=== PATIENT | male | born 1930 | race Caucasian/White ===

== ENCOUNTER 2018-07-24 13:57 | Emergency (ER) | payer BC ==
[2018-07-24 15:22] LABS: ADD UMIC NO; UR ASCORBIC ACID 40 mg/dL (NEGATIVE); UR BILIRUBIN (Dip) NEGATIVE (NEGATIVE); UR BLOOD (Dip) NEGATIVE (NEGATIVE); UR CLARITY CLEAR (CLEAR); UR COLOR YELLOW (YELLOW); UR GLUCOSE (Dip) 1+ mg/dL (NEGATIVE); UR KETONES (Dip) NEGATIVE (NEGATIVE); UR LEUKOCYTE ESTERASE (Dip) NEGATIVE Leu/ul (NEGATIVE); UR NITRITE (Dip) NEGATIVE (NEGATIVE); UR SPECIFIC GRAVITY (Dip) 1.014 (1.003-1.030); UR TOTAL PROTEIN (Dip) NEGATIVE (NEGATIVE); UR UROBILINOGEN (Dip) NEGATIVE (NEGATIVE)
== END 2018-07-24 16:51 | disposition home or self-care (01) ==
LOC: E/R 13:57
DX: R33.9 Retention of urine, unspecified (principal); R30.0 Dysuria; E11.9 Type 2 diabetes mellitus without complications; Z79.84 Long term (current) use of oral hypoglycemic drugs
CPT/HCPCS: 51702; 81003; 99283-25

== ENCOUNTER 2018-12-08 01:30 | Observation (INO) | payer BC ==
[2018-12-08 03:15] LABS: ADD MAN DIFF? NO
[2018-12-08 03:18] LABS: WHITE BLOOD COUNT 6.5 10^3/ul (4.8-10.8)
[2018-12-08 03:18] LABS: BASOPHILS % 0.5 % (0.0-2.0); EOSINOPHILS # 0.2 10^3/ul (0.0-0.5); EOSINOPHILS % 2.8 % (0.0-7.0); HEMATOCRIT 36.7 % (42.0-52.0); HEMOGLOBIN 12.4 g/dl (14.0-18.0); LYMPHOCYTES # 1.1 10^3/ul (0.8-2.9); LYMPHOCYTES % 17.3 % (15.0-51.0); MEAN CORPUSCULAR HEMOGLOBIN 30.3 pg (29.0-33.0); MEAN CORPUSCULAR HGB CONC 33.8 g/dl (32.0-37.0); MEAN CORPUSCULAR VOLUME 89.7 fl (82.0-101.0); MONOCYTE # 0.7 10^3/ul (0.3-0.9); NEUTROPHIL # 4.5 10^3/ul (1.6-7.5); NEUTROPHILS % 69.1 % (39.0-77.0); PLATELET COUNT 169 10^3/UL (140-415); RED BLOOD COUNT 4.09 10^6/ul (4.70-6.10); RED CELL DISTRIBUTION WIDTH 12.9 % (11.5-14.5)
[2018-12-08 03:25] LABS: ADD UMIC YES; UR ASCORBIC ACID NEGATIVE (NEGATIVE); UR BILIRUBIN (Dip) NEGATIVE (NEGATIVE); UR BLOOD (Dip) 1+ mg/dL (NEGATIVE); UR CLARITY CLEAR (CLEAR); UR COLOR STRAW (YELLOW); UR GLUCOSE (Dip) NEGATIVE (NEGATIVE); UR KETONES (Dip) NEGATIVE (NEGATIVE); UR LEUKOCYTE ESTERASE (Dip) NEGATIVE Leu/ul (NEGATIVE); UR NITRITE (Dip) NEGATIVE (NEGATIVE); UR RBC 0 /HPF (0-5); UR SPECIFIC GRAVITY (Dip) 1.005 (1.003-1.030); UR TOTAL PROTEIN (Dip) NEGATIVE (NEGATIVE); UR UROBILINOGEN (Dip) NEGATIVE (NEGATIVE); UR WBC 0 /HPF (0-5)
[2018-12-08 03:38] LABS: INR 1.13; PROTIME 14.6 Sec (11.9-14.9); PT RATIO 1.1
[2018-12-08 03:39] LABS: PARTIAL THROMBOPLASTIN TIME 31.7 Sec (23.0-35.0)
[2018-12-08 03:48] LABS: ALANINE AMINOTRANSFERASE 21 IU/L (13-69); ALBUMIN 3.8 g/dl (3.3-4.9); ALBUMIN/GLOBULIN RATIO 1.15; ALKALINE PHOSPHATASE 59 IU/L (42-121); ANION GAP 8 (5-13); ASPARTATE AMINO TRANSFERASE 31 IU/L (15-46); BILIRUBIN,INDIRECT 0.3 mg/dl (0-1.1); BILIRUBIN,TOTAL 0.3 mg/dl (0.2-1.3); BLOOD UREA NITROGEN 26 mg/dl (7-20); CALCIUM 9.2 mg/dl (8.4-10.2); CARBON DIOXIDE 28 mmol/L (21-31); CHLORIDE 103 mmol/L (97-110); CREATININE 1.02 mg/dl (0.61-1.24); GLUCOSE 129 mg/dl (70-220); POTASSIUM 4.2 mmol/L (3.5-5.1); SODIUM 139 mmol/L (135-144); TOTAL PROTEIN 7.1 g/dl (6.1-8.1)
[2018-12-08 03:59] LABS: TROPONIN-I 0.074 ng/ml (0.000-0.120)
[2018-12-08] MEDS: SOD CHLORIDE 0.9% 100 ML (04:53)
[2018-12-08] MEDS: IOHEXOL 100 ML (04:53)
[2018-12-08] MEDS: PIPER-TAZO 3.375 GM IV (PMX) 100 ML IVPB (05:35)
[2018-12-08] MEDS: SOD CHLORIDE 0.9% 2,390 ML IV (05:36)
[2018-12-08] MEDS: VANCOMYCIN 1 GM (PMX) 250 ML IVPB (05:44)
[2018-12-08 07:45] LABS: LACTIC ACID 0.9 mmol/L (0.5-2.0)
[2018-12-08] MEDS ORDERED: NITROGLYCERIN (SL) 0.4 MG TAB SL (09:00)
[2018-12-08] MEDS ORDERED: ENOXAPARIN 40 MG/0.4 ML SYG SC (09:00)
[2018-12-08] MEDS ORDERED: ALBUTEROL/IPRATROPIUM (NEB) 3 ML AMP HHN (09:00)
[2018-12-08] MEDS ORDERED: ONDANSETRON 4 MG INJ IV (09:00)
[2018-12-08] MEDS ORDERED: BISACODYL 10 MG SUPP PR (09:00)
[2018-12-08] MEDS ORDERED: NACL 0.9% 3 ML SYG IV (09:00)
[2018-12-08] MEDS ORDERED: MAGNESIUM HYDROXIDE 30ML CUP PO (09:00)
[2018-12-08] MEDS ORDERED: DOCUSATE SODIUM 100 MG CAP PO (09:00)
[2018-12-08] MEDS ORDERED: ACETAMINOPHEN 325 MG TAB PO (09:00)
[2018-12-08] MEDS: FUROSEMIDE 40 MG INJ IV (09:58)
[2018-12-08] MEDS: FAMOTIDINE 20 MG TAB PO ×2 (09:58→21:09)
[2018-12-08] MEDS: NICOTINE (21 MG/24 HR) PATCH TRANSDERM (09:59)
[2018-12-08] MEDS: FINASTERIDE 5 MG TAB PO (10:41)
[2018-12-08] MEDS: FLUTICASONE/VILANTEROL 100-25 INH (10:41)
[2018-12-08] MEDS: INSULIN ASPART [NOVOLOG] 3 ML PEN SC ×3 (12:17→21:00)
[2018-12-08 13:34] LABS: CREATINE KINASE 36 IU/L (23-200)
[2018-12-08 13:48] LABS: B-TYPE NATRIURETIC PEPTIDE 13300 PG/ML (0-450); CK INDEX 2.6; CK-MB 0.93 ng/ml (0.0-2.4); TROPONIN-I 0.056 ng/ml (0.000-0.120)
[2018-12-08] MEDS: LEVOFLOXACIN 500 MG TAB PO (14:08)
[2018-12-08] MEDS: TIOTROPIUM 18 MCG CAPSULE INHA DEV INH (14:09)
[2018-12-08] MEDS ORDERED: DEXTROSE 50% 50 ML SYRINGE IV ×2 (15:00)
[2018-12-08] MEDS ORDERED: GLUCOSE GEL 15 GRAM TUBE BUCCAL (15:00)
[2018-12-08] MEDS ORDERED: GLUCAGON 1 MG INJ IM (15:00)
[2018-12-08] MEDS ORDERED: GLUCOSE GEL 15 GRAM TUBE PO ×2 (15:00)
[2018-12-08] MEDS: glipiZIDE 10 MG TAB PO (17:12)
[2018-12-08] MEDS: TERAZOSIN 2 MG CAP PO (21:09)
[2018-12-08] MEDS: IBUPROFEN 600 MG TAB PO (21:10)
[2018-12-08] MEDS: ACCU-CHEK XX (21:17)
[2018-12-09] MEDS: IBUPROFEN 600 MG TAB PO (03:40)
[2018-12-09 06:03] LABS: ADD MAN DIFF? NO
[2018-12-09 06:10] LABS: BASOPHILS % 0.6 % (0.0-2.0); EOSINOPHILS # 0.2 10^3/ul (0.0-0.5); EOSINOPHILS % 2.6 % (0.0-7.0); HEMATOCRIT 37.3 % (42.0-52.0); HEMOGLOBIN 12.6 g/dl (14.0-18.0); LYMPHOCYTES # 1.2 10^3/ul (0.8-2.9); LYMPHOCYTES % 18.9 % (15.0-51.0); MEAN CORPUSCULAR HEMOGLOBIN 29.9 pg (29.0-33.0); MEAN CORPUSCULAR HGB CONC 33.8 g/dl (32.0-37.0); MEAN CORPUSCULAR VOLUME 88.4 fl (82.0-101.0); MEAN PLATELET VOLUME 10.9 fl (7.4-10.4); MONOCYTE # 0.8 10^3/ul (0.3-0.9); MONOCYTES % 11.9 % (0.0-11.0); NEUTROPHIL # 4.2 10^3/ul (1.6-7.5); NEUTROPHILS % 65.7 % (39.0-77.0); PLATELET COUNT 159 10^3/UL (140-415); RED BLOOD COUNT 4.22 10^6/ul (4.70-6.10); RED CELL DISTRIBUTION WIDTH 12.8 % (11.5-14.5)
[2018-12-09 06:10] LABS: WHITE BLOOD COUNT 6.5 10^3/ul (4.8-10.8)
[2018-12-09 06:29] LABS: HEMOGLOBIN A1C 6.6 % (0-5.9)
[2018-12-09 06:34] LABS: ANION GAP 7 (5-13); BLOOD UREA NITROGEN 26 mg/dl (7-20); CARBON DIOXIDE 30 mmol/L (21-31); CHLORIDE 100 mmol/L (97-110); CREATININE 1.15 mg/dl (0.61-1.24); GLUCOSE 132 mg/dl (70-220); MAGNESIUM 1.9 mg/dl (1.7-2.5); POTASSIUM 3.8 mmol/L (3.5-5.1); SODIUM 137 mmol/L (135-144)
[2018-12-09] MEDS: LEVOFLOXACIN 500 MG TAB PO (06:46)
[2018-12-09] MEDS: FUROSEMIDE 20 MG INJ IV (06:47)
[2018-12-09] MEDS: LEVOTHYROXINE 50 MCG TAB PO (07:57)
[2018-12-09] MEDS: glipiZIDE 10 MG TAB PO ×2 (07:57→17:04)
[2018-12-09] MEDS: INSULIN ASPART [NOVOLOG] 3 ML PEN SC ×3 (08:06→17:02)
[2018-12-09] MEDS: NICOTINE (21 MG/24 HR) PATCH TRANSDERM (08:13)
[2018-12-09] MEDS: FINASTERIDE 5 MG TAB PO (08:13)
[2018-12-09] MEDS: FAMOTIDINE 20 MG TAB PO (08:13)
[2018-12-09] MEDS: ENOXAPARIN 40 MG/0.4 ML SYG SC (08:14)
[2018-12-09] MEDS: TIOTROPIUM 18 MCG CAPSULE INHA DEV INH (08:14)
[2018-12-09] MEDS: FLUTICASONE/VILANTEROL 100-25 INH (08:14)
== END 2018-12-09 17:50 | disposition home or self-care (01) ==
LOC: E/R 01:30 → 6WM 05:19
DX: E11.9 Type 2 diabetes mellitus without complications (principal); E03.9 Hypothyroidism, unspecified; C61 Malignant neoplasm of prostate; C79.51 Secondary malignant neoplasm of bone
CPT/HCPCS: 36415; 71045; 71275; 80048; 80053; 81001; 82550; 82553; 82962; 83036; 83605; 83735; 83880; 84484; 85025; 85610; 85730; 87040; 87086; 87400; 93005; 93306; 99217; 99285-25; G0378

== ENCOUNTER 2019-01-18 20:07 | Inpatient (IN) | payer BC ==
[2019-01-18 21:41] LABS: MODE ROOM AIR; MetHgb Venous 0.2 %; Sample Type Blood venous; Site VENOUS LINE; Venous COHb 0.2 %; Venous Fraction OxyHgb 88.8 %; Venous Oxygen Sat 89.2 mmHG (55.0-75.0); Venous Total Hemglobin 13.1 g/dl
[2019-01-18 22:11] LABS: ADD MAN DIFF? NO
[2019-01-18 22:12] LABS: BASOPHILS % 0.5 % (0.0-2.0); EOSINOPHILS # 0.1 10^3/ul (0.0-0.5); EOSINOPHILS % 0.9 % (0.0-7.0); HEMATOCRIT 38.9 % (42.0-52.0); HEMOGLOBIN 13.3 g/dl (14.0-18.0); LYMPHOCYTES # 1.4 10^3/ul (0.8-2.9); LYMPHOCYTES % 18.6 % (15.0-51.0); MEAN CORPUSCULAR HEMOGLOBIN 30.5 pg (29.0-33.0); MEAN CORPUSCULAR HGB CONC 34.2 g/dl (32.0-37.0); MEAN CORPUSCULAR VOLUME 89.2 fl (82.0-101.0); MEAN PLATELET VOLUME 11.6 fl (7.4-10.4); MONOCYTE # 0.9 10^3/ul (0.3-0.9); MONOCYTES % 11.5 % (0.0-11.0); NEUTROPHIL # 5.2 10^3/ul (1.6-7.5); NEUTROPHILS % 68.2 % (39.0-77.0); PLATELET COUNT 184 10^3/UL (140-415); RED BLOOD COUNT 4.36 10^6/ul (4.70-6.10); RED CELL DISTRIBUTION WIDTH 13.4 % (11.5-14.5)
[2019-01-18 22:12] LABS: WHITE BLOOD COUNT 7.6 10^3/ul (4.8-10.8)
[2019-01-18 22:18] LABS: ANION GAP 11 (5-13); BLOOD UREA NITROGEN 27 mg/dl (7-20); CALCIUM 9.7 mg/dl (8.4-10.2); CARBON DIOXIDE 23 mmol/L (21-31); CHLORIDE 104 mmol/L (97-110); CREATININE 1.12 mg/dl (0.61-1.24); POTASSIUM 4.3 mmol/L (3.5-5.1); SODIUM 138 mmol/L (135-144)
[2019-01-18 22:27] LABS: GLUCOSE 46 mg/dl (70-220)
[2019-01-18 22:30] LABS: TROPONIN-I 0.021 ng/ml (0.000-0.120)
[2019-01-18] MEDS: DEXTROSE 50% 50 ML SYRINGE IV (23:08)
[2019-01-18] MEDS ORDERED: LORAZEPAM 2 MG INJ (23:56)
[2019-01-19] MEDS ORDERED: ACETAMINOPHEN 325 MG TAB PO
[2019-01-19] MEDS ORDERED: ONDANSETRON 4 MG INJ IV
[2019-01-19] MEDS: FUROSEMIDE 20 MG INJ IV (00:19)
[2019-01-19 00:49] LABS: Allen Test ACCEPTAB; Arterial Base Excess -0.6 mmol/L (-3.0-3); Arterial Blood Gas Oxygen Sat 96.5 mmHG (95.0-100.0); Arterial COHb 0.1 % (0.0-3.0); Arterial Fraction of Oxyhgb 96.1 % (93.0-99.0); Arterial HCO3 24.1 mmol/L (22.0-26.0); Arterial MetHb 0.3 % (0.0-1.5); Arterial pCO2 40.2 mmhg (35-45); Blood Gas IEPAP 15/5; MODE MASK - BIPAP; Site Right Radial
[2019-01-19 01:00] LABS: ALANINE AMINOTRANSFERASE 33 IU/L (13-69); ALKALINE PHOSPHATASE 58 IU/L (42-121); ASPARTATE AMINO TRANSFERASE 40 IU/L (15-46); BILIRUBIN,INDIRECT 0.3 mg/dl (0-1.1); BILIRUBIN,TOTAL 0.3 mg/dl (0.2-1.3); TOTAL PROTEIN 7.3 g/dl (6.1-8.1)
[2019-01-19 01:09] LABS: B-TYPE NATRIURETIC PEPTIDE 16700 PG/ML (0-450)
[2019-01-19] MEDS ORDERED: GLUCAGON 1 MG INJ IM (04:00)
[2019-01-19] MEDS ORDERED: GLUCOSE GEL 15 GRAM TUBE BUCCAL (04:00)
[2019-01-19] MEDS ORDERED: DEXTROSE 50% 50 ML SYRINGE IV ×2 (04:00)
[2019-01-19] MEDS ORDERED: GLUCOSE GEL 15 GRAM TUBE PO ×2 (04:00)
[2019-01-19] MEDS: FUROSEMIDE 40 MG INJ IV ×2 (05:50→17:41)
[2019-01-19 06:34] LABS: B-TYPE NATRIURETIC PEPTIDE 16500 PG/ML (0-450)
[2019-01-19] MEDS: LEVOTHYROXINE 50 MCG TAB PO (06:42)
[2019-01-19] MEDS ORDERED: glipiZIDE 10 MG TAB PO (07:00)
[2019-01-19] MEDS: INSULIN ASPART [NOVOLOG] 3 ML PEN SC ×4 (08:00→21:00)
[2019-01-19] MEDS: TIOTROPIUM 18 MCG CAPSULE INHA DEV INH (08:32)
[2019-01-19] MEDS: metFORMIN 500 MG TAB PO ×2 (08:32→17:44)
[2019-01-19] MEDS: NICOTINE (21 MG/24 HR) PATCH TRANSDERM (08:32)
[2019-01-19] MEDS: FINASTERIDE 5 MG TAB PO (08:32)
[2019-01-19] MEDS: FLUTICASONE/VILANTEROL 100-25 INH (08:33)
[2019-01-19] MEDS: POTASSIUM CHLORIDE (SR) 20 MEQ TAB PO ×2 (10:17→22:22)
[2019-01-19 11:15] LABS: INR 1.25; PROTIME 15.8 Sec (11.9-14.9); PT RATIO 1.2
[2019-01-19] MEDS: LIDOCAINE 1% (MPF) 5 ML VIAL (13:18)
[2019-01-19] MEDS: ALPRAZOLAM 0.5 MG TAB PO (18:49)
[2019-01-19] MEDS: TERAZOSIN 2 MG CAP PO (22:22)
[2019-01-20] MEDS: ACCU-CHEK XX (02:00)
[2019-01-20] MEDS: FUROSEMIDE 40 MG INJ IV (05:15)
[2019-01-20] MEDS: ALPRAZOLAM 0.5 MG TAB PO (05:15)
[2019-01-20] MEDS: LEVOTHYROXINE 50 MCG TAB PO (05:43)
[2019-01-20 06:06] LABS: ANION GAP 11 (5-13); BLOOD UREA NITROGEN 27 mg/dl (7-20); CARBON DIOXIDE 30 mmol/L (21-31); CHLORIDE 97 mmol/L (97-110); CREATININE 1.11 mg/dl (0.61-1.24); GLUCOSE 117 mg/dl (70-220); POTASSIUM 4.1 mmol/L (3.5-5.1); SODIUM 138 mmol/L (135-144)
[2019-01-20] MEDS: INSULIN ASPART [NOVOLOG] 3 ML PEN SC (07:56)
[2019-01-20] MEDS: TIOTROPIUM 18 MCG CAPSULE INHA DEV INH (07:57)
[2019-01-20] MEDS: POTASSIUM CHLORIDE (SR) 20 MEQ TAB PO (07:57)
[2019-01-20] MEDS: FINASTERIDE 5 MG TAB PO (07:57)
[2019-01-20] MEDS: metFORMIN 500 MG TAB PO (07:57)
[2019-01-20] MEDS: FLUTICASONE/VILANTEROL 100-25 INH (07:58)
[2019-01-20] MEDS: NICOTINE (21 MG/24 HR) PATCH TRANSDERM (07:58)
== END 2019-01-20 11:05 | disposition home health service (06) | DRG 181 ==
LOC: E/R 20:07 → 6WM 23:51
PROC: 4A133R1 Monitoring of Arterial Saturation, Peripheral, Percutaneous Approach (ICD-10-PCS; 2019-01-18)
PROC: 0W993ZZ Drainage of Right Pleural Cavity, Percutaneous Approach (ICD-10-PCS; principal; 2019-01-19)
DX: C78.00 Secondary malignant neoplasm of unspecified lung (principal); J91.0 Malignant pleural effusion; C79.51 Secondary malignant neoplasm of bone; F03.90 Unspecified dementia, unspecified severity, without behavioral disturbance, psychotic disturbance, mood disturbance, and anxiety; J44.9 Chronic obstructive pulmonary disease, unspecified; R06.03 Acute respiratory distress; I50.9 Heart failure, unspecified; Z85.46 Personal history of malignant neoplasm of prostate; Z87.891 Personal history of nicotine dependence
CPT/HCPCS: 36415; 36600; 71045; 76942; 80048; 80076; 82803; 82962; 83880; 84484; 85025; 85610; 93005; 94660; 96374; 99291-25

== ENCOUNTER 2019-04-16 14:09 | Inpatient (IN) | payer BC ==
[2019-04-16 15:18] LABS: ADD MAN DIFF? NO
[2019-04-16 15:23] LABS: WHITE BLOOD COUNT 9.7 10^3/ul (4.8-10.8)
[2019-04-16 15:23] LABS: BASOPHILS % 0.3 % (0.0-2.0); EOSINOPHILS # 0.1 10^3/ul (0.0-0.5); EOSINOPHILS % 0.5 % (0.0-7.0); HEMATOCRIT 34.1 % (42.0-52.0); HEMOGLOBIN 11.6 g/dl (14.0-18.0); LYMPHOCYTES # 0.8 10^3/ul (0.8-2.9); LYMPHOCYTES % 7.9 % (15.0-51.0); MEAN CORPUSCULAR HEMOGLOBIN 31.1 pg (29.0-33.0); MEAN CORPUSCULAR VOLUME 91.4 fl (82.0-101.0); MEAN PLATELET VOLUME 10.2 fl (7.4-10.4); MONOCYTE # 1.1 10^3/ul (0.3-0.9); MONOCYTES % 11.4 % (0.0-11.0); NEUTROPHIL # 7.7 10^3/ul (1.6-7.5); NEUTROPHILS % 79.4 % (39.0-77.0); PLATELET COUNT 170 10^3/UL (140-415); RED BLOOD COUNT 3.73 10^6/ul (4.70-6.10); RED CELL DISTRIBUTION WIDTH 13.7 % (11.5-14.5)
[2019-04-16 15:49] LABS: ANION GAP 9 (5-13); BLOOD UREA NITROGEN 59 mg/dl (7-20); CALCIUM 9.2 mg/dl (8.4-10.2); CARBON DIOXIDE 29 mmol/L (21-31); CHLORIDE 98 mmol/L (97-110); CREATININE 1.35 mg/dl (0.61-1.24); GLUCOSE 196 mg/dl (70-220); SODIUM 136 mmol/L (135-144)
[2019-04-16 15:59] LABS: TROPONIN-I 0.028 ng/ml (0.000-0.120)
[2019-04-16] MEDS: SOD CHLORIDE 0.9% 500 ML IV (16:52)
[2019-04-16] MEDS ORDERED: ZOLPIDEM 5 MG TAB PO (19:00)
[2019-04-16] MEDS ORDERED: ONDANSETRON 4 MG INJ IV ×2 (19:00)
[2019-04-16] MEDS ORDERED: LISINOPRIL 5 MG TAB PO (19:00)
[2019-04-16] MEDS: TERAZOSIN 2 MG CAP PO (21:44)
[2019-04-16] MEDS: ACETAMINOPHEN 325 MG TAB PO (21:58)
[2019-04-17 00:51] LABS: TROPONIN-I 0.047 ng/ml (0.000-0.120)
[2019-04-17] MEDS: LEVOTHYROXINE 50 MCG TAB PO (06:06)
[2019-04-17 06:49] LABS: TROPONIN-I 0.058 ng/ml (0.000-0.120)
[2019-04-17] MEDS: FINASTERIDE 5 MG TAB PO (08:27)
[2019-04-17] MEDS: metFORMIN 500 MG TAB PO ×2 (08:29→17:02)
[2019-04-17] MEDS: FUROSEMIDE 40 MG TAB PO (08:29)
[2019-04-17] MEDS: TERAZOSIN 2 MG CAP PO ×2 (08:30→20:40)
[2019-04-17] MEDS: POTASSIUM CHLORIDE (SR) 10 MEQ TAB PO (08:30)
[2019-04-17] MEDS: morphine 2 MG INJ IV (08:45)
[2019-04-17] MEDS: TIOTROPIUM 18 MCG CAPSULE INHA DEV INH (11:24)
[2019-04-17] MEDS: FLUTICASONE/VILANTEROL 100-25 INH (11:24)
[2019-04-17] MEDS: ALPRAZOLAM 0.5 MG TAB PO (11:25)
[2019-04-17] MEDS: METOPROLOL 25 MG TAB PO ×2 (11:27→20:41)
[2019-04-17] MEDS: BICALUTAMIDE 50 MG TAB PO (12:15)
[2019-04-17 13:32] LABS: TROPONIN-I 0.045 ng/ml (0.000-0.120)
[2019-04-17 13:48] LABS: ANION GAP 9 (5-13); BLOOD UREA NITROGEN 54 mg/dl (7-20); CARBON DIOXIDE 27 mmol/L (21-31); CHLORIDE 99 mmol/L (97-110); CREATININE 1.33 mg/dl (0.61-1.24); GLUCOSE 200 mg/dl (70-220); MAGNESIUM 2.1 mg/dl (1.7-2.5); POTASSIUM 3.8 mmol/L (3.5-5.1); SODIUM 135 mmol/L (135-144)
[2019-04-17 14:49] LABS: D-DIMER 2859.42 ng/ml (<460)
[2019-04-17] MEDS: SOD CHLORIDE 0.9% 500 ML IV (16:50)
[2019-04-17] MEDS: SOD CHLORIDE 0.9% 1,000 ML IV (16:50)
[2019-04-18] MEDS: morphine 2 MG INJ IV (03:20)
[2019-04-18] MEDS: SOD CHLORIDE 0.9% 1,000 ML IV ×3 (03:21→22:00)
[2019-04-18] MEDS: DIGOXIN 500 MCG INJ IV (05:58)
[2019-04-18] MEDS: SOD CHLORIDE 0.9% 250 ML IV (05:59)
[2019-04-18] MEDS: LEVOTHYROXINE 50 MCG TAB PO (06:04)
[2019-04-18] MEDS: TIOTROPIUM 18 MCG CAPSULE INHA DEV INH (08:48)
[2019-04-18] MEDS: FINASTERIDE 5 MG TAB PO (08:48)
[2019-04-18] MEDS: METOPROLOL 25 MG TAB PO ×2 (08:49→20:07)
[2019-04-18] MEDS: FLUTICASONE/VILANTEROL 100-25 INH (08:50)
[2019-04-18] MEDS: POTASSIUM CHLORIDE (SR) 10 MEQ TAB PO (08:50)
[2019-04-18] MEDS: BICALUTAMIDE 50 MG TAB PO (08:59)
[2019-04-18] MEDS: metFORMIN 500 MG TAB PO ×2 (09:00→17:22)
[2019-04-18] MEDS: ALPRAZOLAM 0.5 MG TAB PO (09:49)
[2019-04-18 11:16] LABS: ADD MAN DIFF? NO
[2019-04-18 11:21] LABS: BASOPHILS % 0.3 % (0.0-2.0); EOSINOPHILS # 0.1 10^3/ul (0.0-0.5); EOSINOPHILS % 1.3 % (0.0-7.0); HEMATOCRIT 31.4 % (42.0-52.0); HEMOGLOBIN 10.3 g/dl (14.0-18.0); LYMPHOCYTES # 1.2 10^3/ul (0.8-2.9); LYMPHOCYTES % 12.6 % (15.0-51.0); MEAN CORPUSCULAR HGB CONC 32.8 g/dl (32.0-37.0); MEAN CORPUSCULAR VOLUME 94.6 fl (82.0-101.0); MEAN PLATELET VOLUME 10.9 fl (7.4-10.4); MONOCYTES % 11.1 % (0.0-11.0); NEUTROPHIL # 6.8 10^3/ul (1.6-7.5); NEUTROPHILS % 74.4 % (39.0-77.0); PLATELET COUNT 143 10^3/UL (140-415); RED BLOOD COUNT 3.32 10^6/ul (4.70-6.10); RED CELL DISTRIBUTION WIDTH 13.7 % (11.5-14.5)
[2019-04-18 11:21] LABS: WHITE BLOOD COUNT 9.2 10^3/ul (4.8-10.8)
[2019-04-18 11:49] LABS: ANION GAP 6 (5-13); BLOOD UREA NITROGEN 50 mg/dl (7-20); CALCIUM 8.4 mg/dl (8.4-10.2); CARBON DIOXIDE 27 mmol/L (21-31); CHLORIDE 100 mmol/L (97-110); CREATININE 1.32 mg/dl (0.61-1.24); GLUCOSE 201 mg/dl (70-220); SODIUM 133 mmol/L (135-144)
[2019-04-18] MEDS: MAGNESIUM SULFATE 1 GM/D5W 100 ML IVPB (13:30)
[2019-04-18] MEDS: AMIODARONE 200 MG TAB PO ×2 (13:58→20:08)
[2019-04-18] MEDS ORDERED: LACTULOSE 30ML CUP PO (14:00)
[2019-04-19] MEDS: SOD CHLORIDE 0.9% 1,000 ML IV (03:15)
[2019-04-19] MEDS: LEVOTHYROXINE 50 MCG TAB PO (05:27)
[2019-04-19] MEDS: FINASTERIDE 5 MG TAB PO (08:33)
[2019-04-19] MEDS: METOPROLOL 25 MG TAB PO (08:33)
[2019-04-19] MEDS: AMIODARONE 200 MG TAB PO ×2 (08:34→14:29)
[2019-04-19] MEDS: POTASSIUM CHLORIDE (SR) 10 MEQ TAB PO (08:34)
[2019-04-19] MEDS: BICALUTAMIDE 50 MG TAB PO (08:38)
[2019-04-19] MEDS: TIOTROPIUM 18 MCG CAPSULE INHA DEV INH (09:00)
[2019-04-19] MEDS: FLUTICASONE/VILANTEROL 100-25 INH (09:00)
[2019-04-19] MEDS: metFORMIN 500 MG TAB PO ×2 (09:10→17:59)
[2019-04-19] MEDS: FUROSEMIDE 40 MG INJ IV ×2 (10:46→17:59)
[2019-04-19] MEDS: ALBUTEROL/IPRATROPIUM (NEB) 3 ML AMP HHN ×3 (11:16→16:51)
[2019-04-19] MEDS ORDERED: CYCLOSPORINE 0.05% OPH DROPERETTE (17:51)
== END 2019-04-19 19:30 | disposition home health service (06) | DRG 204 ==
LOC: 6WM 04-18 10:08 → E/R 14:09 → 6WM 22:01
DX: R07.81 Pleurodynia (principal); I50.23 Acute on chronic systolic (congestive) heart failure; C79.51 Secondary malignant neoplasm of bone; C78.00 Secondary malignant neoplasm of unspecified lung; I47.1 Supraventricular tachycardia; I48.92 Unspecified atrial flutter; I42.9 Cardiomyopathy, unspecified; I13.0 Hypertensive heart and chronic kidney disease with heart failure and stage 1 through stage 4 chronic kidney disease, or unspecified chronic kidney disease; N17.9 Acute kidney failure, unspecified; N18.3 Chronic kidney disease, stage 3 (moderate); J44.9 Chronic obstructive pulmonary disease, unspecified; Z66 Do not resuscitate; E11.22 Type 2 diabetes mellitus with diabetic chronic kidney disease; E86.0 Dehydration; N40.0 Benign prostatic hyperplasia without lower urinary tract symptoms; D63.8 Anemia in other chronic diseases classified elsewhere; E03.9 Hypothyroidism, unspecified; I48.0 Paroxysmal atrial fibrillation; Z85.46 Personal history of malignant neoplasm of prostate; Z87.891 Personal history of nicotine dependence
CPT/HCPCS: 36415; 71045; 78582; 80048; 82962; 83735; 84443; 84484; 85025; 85378; 93005; 93306; 94640; 97110; 97161; 99285-25; G0378

== ENCOUNTER 2019-06-01 19:57 | Emergency (ER) | payer BC ==
[2019-06-01] MEDS: ONDANSETRON 4 MG INJ IV (20:58)
[2019-06-01] MEDS: SOD CHLORIDE 0.9% 1,000 ML IV (20:58)
[2019-06-01 20:59] LABS: ADD MAN DIFF? NO
[2019-06-01 21:01] LABS: ABNORMAL IP MESSAGE 1; BASOPHILS % 0.1 % (0.0-2.0); EOSINOPHILS % 0.2 % (0.0-7.0); HEMATOCRIT 32.6 % (42.0-52.0); HEMOGLOBIN 10.5 g/dl (14.0-18.0); LYMPHOCYTES # 0.4 10^3/ul (0.8-2.9); MEAN CORPUSCULAR HEMOGLOBIN 30.8 pg (29.0-33.0); MEAN CORPUSCULAR HGB CONC 32.2 g/dl (32.0-37.0); MEAN CORPUSCULAR VOLUME 95.6 fl (82.0-101.0); MEAN PLATELET VOLUME 10.4 fl (7.4-10.4); MONOCYTE # 0.5 10^3/ul (0.3-0.9); MONOCYTES % 5.8 % (0.0-11.0); NEUTROPHIL # 7.6 10^3/ul (1.6-7.5); NEUTROPHILS % 88.6 % (39.0-77.0); PLATELET COUNT 209 10^3/UL (140-415); POSITIVE DIFF @See below; RED BLOOD COUNT 3.41 10^6/ul (4.70-6.10); RED CELL DISTRIBUTION WIDTH 13.2 % (11.5-14.5)
[2019-06-01 21:01] LABS: WHITE BLOOD COUNT 8.6 10^3/ul (4.8-10.8)
[2019-06-01 21:18] LABS: ALANINE AMINOTRANSFERASE 37 IU/L (13-69); ALBUMIN 3.7 g/dl (3.3-4.9); ALBUMIN/GLOBULIN RATIO 1.08; ALKALINE PHOSPHATASE 62 IU/L (42-121); ANION GAP 16 (5-13); ASPARTATE AMINO TRANSFERASE 24 IU/L (15-46); BILIRUBIN,INDIRECT 0.3 mg/dl (0-1.1); BILIRUBIN,TOTAL 0.3 mg/dl (0.2-1.3); BLOOD UREA NITROGEN 88 mg/dl (7-20); CALCIUM 9.4 mg/dl (8.4-10.2); CARBON DIOXIDE 20 mmol/L (21-31); CHLORIDE 98 mmol/L (97-110); CREATININE 3.04 mg/dl (0.61-1.24); GLUCOSE 212 mg/dl (70-220); LIPASE 17 U/L (23-300); POTASSIUM 5.4 mmol/L (3.5-5.1); SODIUM 134 mmol/L (135-144); TOTAL PROTEIN 7.1 g/dl (6.1-8.1)
[2019-06-01 21:30] LABS: TROPONIN-I 0.016 ng/ml (0.000-0.120)
== END 2019-06-01 23:21 | disposition home or self-care (01) ==
LOC: E/R 19:57
DX: N17.9 Acute kidney failure, unspecified (principal); R11.10 Vomiting, unspecified; E86.0 Dehydration; E11.9 Type 2 diabetes mellitus without complications; J44.9 Chronic obstructive pulmonary disease, unspecified; I10 Essential (primary) hypertension; Z85.46 Personal history of malignant neoplasm of prostate; Z85.118 Personal history of other malignant neoplasm of bronchus and lung; Z79.84 Long term (current) use of oral hypoglycemic drugs
CPT/HCPCS: 36415; 80053; 83690; 84484; 85025; 93005; 96361; 96374; 99284-25